=== PATIENT | female | born 1945 | race Caucasian/White ===

== ENCOUNTER → 2017-10-26 | Outpatient (CLI) | payer BC | LOC: FIMAGING 08:14 | PROVIDERS: ATTEND Family Medicine | DX: Z12.31 Encounter for screening mammogram for malignant neoplasm of breast (principal); Z13.820 Encounter for screening for osteoporosis; M85.80 Other specified disorders of bone density and structure, unspecified site; Z79.899 Other long term (current) drug therapy; Z87.81 Personal history of (healed) traumatic fracture; Z82.62 Family history of osteoporosis ==

== ENCOUNTER → 2018-06-08 | Outpatient (CLI) | payer BC | LOC: FIMAGING 07:12 | PROVIDERS: ATTEND Radiology Diagnostic Radiology | DX: I83.93 Asymptomatic varicose veins of bilateral lower extremities (principal) ==

== ENCOUNTER 2018-08-02 11:23 | Day surgery (SDC) | payer BC ==
[2018-08-02] MEDS ORDERED: FLUMAZENIL 0.5 MG/5 ML MDV IVP PRN (12:11)
[2018-08-02] MEDS ORDERED: ONDANSETRON 4 MG/2 ML VIAL IVP ONE (12:11)
[2018-08-02] MEDS ORDERED: fentaNYL 100 MCG/2 ML INJ IVP PRN (12:11)
[2018-08-02] MEDS ORDERED: NS 1,000 ML IV ONE (12:11)
[2018-08-02] MEDS ORDERED: NALOXONE HCL 0.4 MG/ML INJ IVP PRN (12:11)
[2018-08-02] MEDS ORDERED: MIDAZOLAM 2 MG/2 ML VIAL IVP PRN (12:11)
[2018-08-02] MEDS ORDERED: POLIDOCANOL 0.5% 2 ML AMP IV ONE ×2 (12:41→13:44)
[2018-08-02] MEDS ORDERED: LIDO/EPI 1% **for epidural** 30 ML SDV ONE (12:47)
--- NOTE | 2018-08-02 13:27 | PDPROPOC ---
Sedation Plan of Care Sedation Plan of Care: vital signs stable, mental status noted, patient educated of risks, benefits, alternatives, patient can tolerate sedation ASA Classification: ASA 2 Planned drugs: fentanyl, midazolam Mallampati Score: Class 1 Mallampati Reference Image: Patient passed 3-3-2 rule?: Yes
--- NOTE | 2018-08-02 14:30 | PDGENHP ---
History & Physical Chief Complaint: bilateral symptomatic varicose veins History of Present Illness: SYMPTOMATIC VARICOSE VEINS Pertinent Past, Social, Family History: N/A Relevant Physical Exam: ROPEY VARICOSE VEINS ARE MAPPED OUT BILATERALLY. Cardiorespiratory Assessment: RRR, CTA
[2018-08-02] MEDS ORDERED: ACETAMINOPHEN 325 MG TAB PO PRN (14:31)
--- NOTE | 2018-08-02 14:31 | PDRADPN ---
Radiology Procedure Note Date of Procedure: 08/02/18 Radiologist: Ceci Salgado Anesthesia: IV Sedation Pre-op Diagnosis: BILATERAL VARICOSE VEINS Post-op Diagnosis: SAME Indication: bilateral pain and swelling Procedure: laser ablation, sclerotherapy Inf/Abcess present in the surg proc area at time of surgery?: No
[2018-08-02 15:03] VITALS: BP 112/68
== END 2018-08-02 15:40 | disposition home or self-care (01) ==
LOC: FIMAGING 11:23
PROVIDERS: ATTEND Radiology Diagnostic Radiology
DX: I83.813 Varicose veins of bilateral lower extremities with pain (principal); I83.893 Varicose veins of bilateral lower extremities with other complications
CPT/HCPCS: J2250; J2310; J3010